=== PATIENT | male | born 1980 | race Caucasian/White ===

== ENCOUNTER 2021-08-06 19:13 | Emergency (ER) | payer SELFPAY ==
[~2021-08-06 19:13] MED LIST: AEROCHAMBER1 EA XX; GLUCOPHAGE500 MG PO; PREDNISONE20 MG PO; PROVENTIL HFA6.7 GM INH; VENTOLIN HFA 66.7 GM INH
[2021-08-06 20:03] LABS: HEMOGLOBIN 17.4 gm/dl (14.0-17.5); RED BLOOD COUNT 5.61 M/UL (4.20-5.50); WHITE BLOOD COUNT 9.3 K/UL (4.5-11.0)
[2021-08-06 20:45] LABS: BUN/CREATININE RATIO 14 (0-10)
[2021-08-06] MEDS ORDERED: PREDNISONE50 MG PO (21:58)
[2021-08-06] MEDS ORDERED: PROVENTIL HFA6.7 GM INH (21:58)
[2021-08-06] MEDS ORDERED: BENZONATATE100 MG PO (21:58)
== END 2021-08-06 22:04 | disposition home or self-care (01) ==
LOC: ER1 19:13
PROVIDERS: Physician Assistant
DX: E11.65 Type 2 diabetes mellitus with hyperglycemia (principal); R06.02 Shortness of breath; R05.9 Cough, unspecified; Z20.822 Contact with and (suspected) exposure to COVID-19; F17.210 Nicotine dependence, cigarettes, uncomplicated; J44.9 Chronic obstructive pulmonary disease, unspecified
CPT/HCPCS: 0240U; 71045; 80053; 82550; 82553; 82962; 83874; 83880; 84484; 85025; 93005; 99284

== ENCOUNTER 2022-03-15 22:51 | Emergency (ER) | payer OTHER ==
[~2022-03-15 22:51] MED LIST changes: +BENZONATATE100 MG PO; +PREDNISONE50 MG PO
== END 2022-03-16 01:55 | disposition home or self-care (01) ==
LOC: ER1 22:51
DX: S66.811A Strain of other specified muscles, fascia and tendons at wrist and hand level, right hand, initial encounter (principal); S29.012A Strain of muscle and tendon of back wall of thorax, initial encounter; E11.9 Type 2 diabetes mellitus without complications; I10 Essential (primary) hypertension; F17.200 Nicotine dependence, unspecified, uncomplicated; V89.2XXA Person injured in unspecified motor-vehicle accident, traffic, initial encounter; W22.10XA Striking against or struck by unspecified automobile airbag, initial encounter
CPT/HCPCS: 71111; 73080; 99283; J1885